=== PATIENT | male | born 1975 | race Caucasian/White ===

== ENCOUNTER 2024-01-31 09:45 | Emergency (ER) | payer OTHER, SELFPAY ==
[2024-01-31 09:49] VITALS: BP 157/102
--- NOTE | 2024-01-31 10:00 | ED.GENMED ---
History of Present Illness
General
Chief Complaint: Breathing Problem
Source: patient
Exam Limitations: none
Time Seen by Provider: 01/31/24 09:53
History of Present Illness
History of Present Illness:
See MDM
Past History
Past History
ED Past Medical History: None
ED Past Surgical History: Cholecystectomy
Social History
Tobacco: Non-smoker
Alcohol: None
Phy Exam
Physical Exam
Physical Exam:
See MDM
Scores
Heart Failure Risk
Heart Failure Risk Score: Not Applicable
Course
Orders/Labs/Results
Orders:
Orders
01/31/24
Electrocardiogram (*1) Stat
Comment: DONE EMR
01/31/24 09:51
Electrocardiogram (*1) Urgent
Reason for Study: Shortness of Breath
01/31/24 09:52
EKG- Treatment ONCE
01/31/24 10:05
Acetaminophen [Tylenol] 1,000 mg .ROUTE .STK-MED ONE
Ipratropium/Albuterol Sulfate [Duoneb] 3 ml .ROUTE .STK-MED ONE
01/31/24 10:06
Acetaminophen [Tylenol] 1,000 mg PO NOW STA
Dexamethasone Sod Phosphate [Decadron] 10 mg IV NOW STA
Ipratropium/Albuterol Sulfate [Duoneb] 3 ml INH R NOW STA
01/31/24 10:10
COVID-19 Antigen Urgent
Source: Nasal Swab
Influenza A+B Rapid Molecular Urgent
JAYY Source: Nasal Swab
Specimen Description:
01/31/24 10:13
Complete Blood Count/With Diff Urgent
Comprehensive Metabolic Panel Urgent
NT-proBNP Urgent
Troponin I Urgent
01/31/24 11:38
Azithromycin [Zithromax] 500 mg PO NOW STA
Abnormal Lab Results
01/31/24
10:13
MCH 31.9 H pg
(27.0-31.0)
Absolute Lymphs (auto) 1.1 L 10^3/uL
(1.2-3.4)
Absolute Monos (auto) 1.2 H 10^3/uL
(0.1-0.6)
Lymphocytes % 12.3 L %
(20.5-51.1)
Monocytes % 12.9 H %
(1.7-9.3)
ALT 56 H U/L
(0-50)
01/31/24 10:13
01/31/24 10:13
Vital Signs
Initial and Last Documented VS:
Initial Vital Signs
Temp Pulse Resp BP Pulse Ox
100.3 F 103 20 157/102 96
01/31/24 09:49 01/31/24 09:49 01/31/24 09:49 01/31/24 09:49 01/31/24 09:49
Last Documented Vital Signs
Temp Pulse Resp BP Pulse Ox
100.3 F 85 15 142/81 91
01/31/24 09:49 01/31/24 11:30 01/31/24 11:30 01/31/24 11:00 01/31/24 11:30
MDM/Problems Addressed
Differential Diagnosis Includes:
HPI and MDM Narrative:
48-year-old male presenting with cough, shortness of breath, fevers since yesterday. He denies sick contacts. He is an active smoker with a history of asthma but states the asthma is otherwise well-controlled. Given his symptoms, he went to
urgent care where he had COVID and flu testing which were negative. He had a chest x-ray which she told was negative
On arrival, patient febrile and wheezing. Will give Decadron and DuoNeb and try and upload the chest x-ray so I can personally viewed
Physical exam
General: Well appearing and non-toxic
HEENT: protecting airway
Neck: appears supple
CV: No evidence of cyanosis. Mild tachycardia.
Resp: No accessory muscle use. Mild tachypnea. Expiratory wheezing throughout
Abd: Non-distended
Extremities: No deformities. No leg edema
Neuro: alert
Psych: Normal affect
Skin: Intact
Problems Addressed including Acute and Chronic Conditions affecting care:
1. Bronchitis
Acuity: acute
Prognosis: stable
Details: Will give DuoNeb and Decadron and evaluate chest x-ray
Updates
The chest x-ray from urgent care was loaded to the computer. I do not appreciate any pneumonia or pulmonary edema
Cardiac testing negative. On reexamination after DuoNeb and steroids, patient states he is feeling much better. Will start azithromycin and treat as bronchitis
Differential Diagnosis (but not limited to): Bronchitis, pneumonia, viral syndrome
Testing considered: D-dimer but no clinical evidence of DVT
Drug therapy (if applicable): OTC meds, please see d/c instruction regarding Rx drugs
Amount and/or Complexity of Data Reviewed
Clinical info obtained from: Patient
External data reviewed: N/A
Labs I independently reviewed (but not limited to): Troponin and BNP negative
Radiology: X-ray independently reviewed: Chest x-ray without pneumonia, pneumothorax or pulmonary edema
Pulse Ox: not hypoxic
EKG independently reviewed: Sinus rhythm, normal axis, no STEMI.
Electronic Funds Transfer Coordinator: Sinus rhythm
Critical Care: N/A
Risk of Complication:
Social Determinants of health: Good social support
Discussed with other providers: N/A
Escalation of Care includes Admit/Obs: After being observed in the Emergency Department, pt stable for discharge.
Occasional wrong word or 'sound a like' substitutions may have occurred due to the inherent limitations of voice recognition software. Read the chart carefully and recognize, using context, where substitutions have occurred.
*Critical Care Note
Total Time (30-74mins, 75-104mins- exclusive of procedures): Not Applicable
ED Attending Note
-
Portions of this chart may have been created with voice recognition software.� Occasional wrong word or��sound alike� substitutions may have occurred due to the inherent limitations of voice recognition software.
Discharge Plan
Departure
Patient Disposition: Home (Routine Discharge)
Date of Disposition: 01/31/24
Time of Disposition: 11:39
Patient with high blood pressure during this ER visit?: Yes
Discharge Problem:
Acute bronchitis
Instructions: Acute Bronchitis, Adult (DC)
Prescriptions:
New
azithromycin [Zithromax] 250 mg Tablet
250 mg PO DAILY Qty: 4 0RF
prednisone 20 mg tablet
40 mg PO DAILY Qty: 10 0RF
albuterol sulfate 90 mcg/actuation HFA aerosol inhaler
2 puff inhalation Q6H PRN (Reason: shortness of breath or wheezing) Qty: 8.5 0RF
Referrals:
NONE,* [Family Provider] -
Activity Restrictions/Additional Instructions:
Please return for any worsening symptoms.
You may return at any time if you have further concerns.
Please follow up with your doctor at the first available appointment, preferably this week.
You were given your first dose of antibiotics today. You can start them tomorrow.
Thank you for choosing [facility].
Interventions
Interventions:
*Risk Screen - Suicide Last Done: 01/31/24 10:27
*Neglect/Abuse Screening Last Done: 01/31/24 10:27
ED- Fall Risk Assessment Last Done: 01/31/24 11:34
*ED COVID-19 Vaccine History Last Done: 01/31/24 10:14
ED- Cardiac Assessment Last Done: 01/31/24 10:16
ED- Pulmonary Assessment Last Done: 01/31/24 10:16
Discharge Date and Time
Print Language: SAMI
[2024-01-31] MEDS: TYLENOL 1000 MG PO (10:15)
[2024-01-31] MEDS: DUONEB 3 ML INH (10:16)
[2024-01-31] MEDS: DECADRON 10 MG IV (10:20)
[2024-01-31 10:29] VITALS: BP 146/86
[2024-01-31 10:32] LABS: % Basophils 0.8 % (0-2); % Eosinophils 4.2 % (0-6); % Immature Granulocytes 0.4 % (0-0.5); % Lymphocytes 12.3 % (20.5-51.1); % Monocytes 12.9 % (1.7-9.3); % Neutrophils 69.4 % (42.2-75.2); Absolute Basophils 0.1 10^3/uL (0-0.2); Absolute Eosinophils 0.4 10^3/uL (0-0.7); Absolute Lymphocytes 1.1 10^3/uL (1.2-3.4); Absolute Monocytes 1.2 10^3/uL (0.1-0.6); Absolute Neutrophils 6.4 10^3/uL (1.4-6.5); Hematocrit 47.7 % (39.0-52.0); Hemoglobin 16.5 g/dL (13.0-18.0); Mean Corp Hgb Conc. 34.6 g/dL (33.0-37.0); Mean Corpuscular Hgb 31.9 pg (27.0-31.0); Mean Corpuscular Volume 92.1 fL (80.0-94.0); Nucleated Red Blood Cells % 0 % (-); Platelet Count 196 10^3/uL (130-400); Red Blood Cell Count 5.18 10^6/uL (4.70-6.10); Red Cell Dist. Width 12.8 % (11.5-14.5); White Blood Cell Count 9.2 10^3/uL (4.8-10.8)
[2024-01-31 10:43] LABS: ALT (SGPT) 56 U/L (0-50); AST (SGOT) 34 U/L (17-59); Alkaline Phosphatase 85 U/L (38-126); Blood Urea Nitrogen 9 mg/dl (9-20); Calcium 9.6 mg/dl (8.4-10.2); Carbon Dioxide 27 mmol/L (22-30); Chloride 101 mmol/L (98-107); Glucose 87 mg/dl (70-99); Potassium 4.1 mmol/L (3.5-5.1); Sodium 136 mmol/L (135-145); Total Bilirubin 1.2 mg/dl (0.2-1.3); Total Protein 7.5 g/dl (6.3-8.2); eGFR > 60.00
[2024-01-31 10:47] LABS: COVID-19 Antigen Negative (Negative)
[2024-01-31 10:55] LABS: NT-proBNP 32.9 pg/ml; Troponin I < 0.012 ng/ml
[2024-01-31 11:00] VITALS: BP 142/81
[2024-01-31] MEDS: ZITHROMAX 500 MG PO (11:44)
== END 2024-01-31 11:48 | disposition home or self-care (01) ==
LOC: EMR 09:45
PROVIDERS: EMERGENCY PHYSICIAN Student in an Organized Health Care Education/Training Program
DX: J20.9 Acute bronchitis, unspecified (principal)
CPT/HCPCS: 99284; 96374; 94640; 80053; 83880; 84484; 85025; 87502; 87811; 93005